=== PATIENT | male | born 1975 | race African-American/Black ===

== ENCOUNTER 2022-06-15 14:20 | Inpatient (IN) | payer OTHER ==
[2022-06-15 16:55] VITALS: BMI 21.2
[2022-06-15] MEDS ORDERED: BISMUTH SUBSALICYLATE 524 MG/30 ML PO PRN (17:16)
[2022-06-15] MEDS ORDERED: BENZOCAINE/MENTHOL (CHLORASEPTIC ) LOZENGE MM PRN (17:16)
[2022-06-15] MEDS ORDERED: DICYCLOMINE HCL 10 MG CAPSULE PO PRN (17:16)
[2022-06-15] MEDS ORDERED: NALOXONE HCL (KLOXXADO) 8 MG SPRAY NS PRN (17:16)
[2022-06-15] MEDS ORDERED: LOPERAMIDE HCL 2 MG CAPSULE PO PRN (17:16)
[2022-06-15] MEDS ORDERED: POLYETHYLENE GLYCOL (HEALTHYLAX) 3350 17 GM PACKET PO PRN (17:16)
[2022-06-15] MEDS ORDERED: IBUPROFEN 400 MG TABLET (FP) PO PRN (17:16)
[2022-06-15] MEDS ORDERED: MAGNESIUM HYDROX 2400MG/30ML ORAL SUSPENSION 30 ML CUP PO PRN (17:16)
[2022-06-15] MEDS ORDERED: MAG HYDROX/AL HYDROX/SIMETH 30 ML UNIT-DOSE CUP PO PRN (17:16)
[2022-06-15] MEDS ORDERED: ACETAMINOPHEN 325 MG TABLET (FP) PO PRN ×2 (17:16)
[2022-06-15] MEDS ORDERED: ONDANSETRON *ODT* 4 MG TABLET SL PRN (17:16)
[2022-06-15] MEDS ORDERED: NICOTINE POLACRILEX 4 MG GUM BUC PRN (17:16)
[2022-06-15] MEDS: cloNIDine HCL 0.1 MG TABLET PO PRN (18:21)
[2022-06-15] MEDS: MELATONIN 5 MG TABLETS PO SCH (23:11)
[2022-06-15] MEDS: THIAMINE HCL 100 MG TABLET (FP) PO SCH (23:11)
[2022-06-16] MEDS: cloNIDine HCL 0.1 MG TABLET PO PRN ×2 (06:33→23:19)
[2022-06-16] MEDS ORDERED: cloNIDine HCL 0.1 MG TABLET PO PRN (09:52)
[2022-06-16] MEDS ORDERED: methaDONE HCL 10 MG TABLET (FOR DETOX USE ONLY) PO ONE (10:15)
[2022-06-16] MEDS: PRENATAL VITAMINS W/ FOLIC ACID TABLET (FP) PO SCH (10:43)
[2022-06-16 11:50] LABS: HEMATOCRIT 38.4 % (35.4-49); HEMOGLOBIN 12.9 GM/dL (11.7-16.9); MCH 32.7 pg (25.7-33.7); MCHC 33.5 g/dl (32.0-35.9); MEAN CELL VOLUME 97.9 fl (80-96); MEAN PLT VOLUME 7.5 fl (7.5-11.1); PLATELET COUNT 389 10^3/uL (134-434); RBC 3.93 M/mm3 (4.00-5.60); RDW 15.3 % (11.9-15.9); WHITE BLOOD COUNT 5.1 K/mm3 (4.0-10.0)
[2022-06-16 11:56] LABS: ALBUMIN 2.8 g/dl (3.4-5.0); BLOOD UREA NITROGEN 11.5 mg/dL (7-18); CALCIUM 8.9 mg/dL (8.5-10.1)
[2022-06-16 11:59] LABS: CREATININE 0.7 mg/dL (0.55-1.3)
[2022-06-16 12:00] LABS: BILIRUBIN,TOTAL 0.7 mg/dL (0.2-1); TOT PROT 6.2 g/dl (6.4-8.2)
[2022-06-16] MEDS: MELATONIN 5 MG TABLETS PO SCH (23:19)
[2022-06-16] MEDS: THIAMINE HCL 100 MG TABLET (FP) PO SCH (23:19)
[2022-06-17] MEDS: CLINDAMYCIN HCL 150 MG CAPSULE (FP) PO SCH ×3 (05:11→17:26)
[2022-06-17] MEDS ORDERED: LACTULOSE 20 GM/30 ML UDC (FOR ORAL USE ONLY) PO PRN (10:08)
[2022-06-17] MEDS: PRENATAL VITAMINS W/ FOLIC ACID TABLET (FP) PO SCH (10:24)
[2022-06-17] MEDS: cloNIDine HCL 0.1 MG TABLET PO PRN (14:36)
[2022-06-18] MEDS: CLINDAMYCIN HCL 150 MG CAPSULE (FP) PO SCH ×2 (00:34→05:48)
[2022-06-18] MEDS: THIAMINE HCL 100 MG TABLET (FP) PO SCH (00:34)
[2022-06-18] MEDS: MELATONIN 5 MG TABLETS PO SCH (00:34)
[2022-06-18] MEDS: cloNIDine HCL 0.1 MG TABLET PO PRN (05:49)
[2022-06-18 09:27] VITALS: BP 147/73; PULSE 89; RESP 18; TEMP 98
[2022-06-18] MEDS ORDERED: methaDONE HCL 10 MG TABLET (FOR DETOX USE ONLY) PO ONE (10:00)
[2022-06-18] MEDS: PRENATAL VITAMINS W/ FOLIC ACID TABLET (FP) PO SCH (10:25)
[2022-06-20] MEDS ORDERED: methaDONE HCL 10 MG TABLET (FOR DETOX USE ONLY) PO ONE (10:00)
== END 2022-06-18 11:41 | disposition left against medical advice (07) | DRG 770 ==
LOC: YASAS 14:20 → Y6N 17:45 → UNDOADMIN 17:45
PROVIDERS: ADMIT Allergy & Immunology; ATTEND Surgery
PROC: HZ2ZZZZ Detoxification Services for Substance Abuse Treatment (ICD-10-PCS; principal; 2022-06-15)
DX: F11.23 Opioid dependence with withdrawal (principal); F14.20 Cocaine dependence, uncomplicated; F12.10 Cannabis abuse, uncomplicated; J34.0 Abscess, furuncle and carbuncle of nose; Z59.00 Homelessness unspecified; Z28.310 Unvaccinated for COVID-19; Z28.9 Immunization not carried out for unspecified reason
CPT/HCPCS: 36415; 80053; 82140; 85027; 86780; 86803; C9803-CS; U0003; U0005

== ENCOUNTER 2022-06-16 17:51 | Emergency (ER) | payer OTHER ==
[2022-06-16 18:33] VITALS: BP 148/91; PULSE 80; RESP 18; TEMP 98.5; BMI 20.6
[2022-06-16] MEDS ORDERED: CLINDAMYCIN HCL 150 MG CAPSULE (FP) PO ONE (18:33)
[2022-06-16] MEDS ORDERED: CLINDAMYCIN HCL 150 MG CAPSULE (FP) ONE (18:37)
[2022-06-17] MEDS ORDERED: CLINDAMYCIN HCL 150 MG CAPSULE (FP) PO SCH (06:00)
== END 2022-06-16 22:09 | disposition home or self-care (01) ==
LOC: FER 17:51
DX: J34.0 Abscess, furuncle and carbuncle of nose (principal)
CPT/HCPCS: 99283-25

== ENCOUNTER 2022-08-16 21:19 | Inpatient (IN) | payer OTHER ==
[2022-08-16 21:56] VITALS: BMI 20.2
[2022-08-16] MEDS ORDERED: IBUPROFEN 600 MG TABLET (FP) PO PRN (22:25)
[2022-08-16] MEDS ORDERED: LOPERAMIDE HCL 2 MG CAPSULE PO PRN (22:25)
[2022-08-16] MEDS ORDERED: IBUPROFEN 400 MG TABLET (FP) PO PRN (22:25)
[2022-08-16] MEDS ORDERED: guaiFENesin 200 MG/10 ML 10 ML UNIT-DOSE CUPS PO PRN (22:25)
[2022-08-16] MEDS ORDERED: MAGNESIUM HYDROX 2400MG/30ML ORAL SUSPENSION 30 ML CUP PO PRN (22:25)
[2022-08-16] MEDS ORDERED: ONDANSETRON *ODT* 4 MG TABLET SL PRN (22:25)
[2022-08-16] MEDS ORDERED: NALOXONE HCL (KLOXXADO) 8 MG SPRAY NS PRN (22:25)
[2022-08-16] MEDS ORDERED: NALOXONE HCL 0.4 MG/ML VIAL IM PRN (22:25)
[2022-08-16] MEDS ORDERED: BISMUTH SUBSALICYLATE 524 MG/30 ML PO PRN (22:25)
[2022-08-16] MEDS ORDERED: MAG HYDROX/AL HYDROX/SIMETH 30 ML UNIT-DOSE CUP PO PRN (22:25)
[2022-08-16] MEDS ORDERED: P-EPHED 60MG/TRIPROLIDI 2.5MG TABLET PO PRN (22:25)
[2022-08-16] MEDS ORDERED: DICYCLOMINE HCL 10 MG CAPSULE PO PRN (22:25)
[2022-08-16] MEDS ORDERED: BENZOCAINE/MENTHOL (CHLORASEPTIC ) LOZENGE MM PRN (22:25)
[2022-08-16] MEDS ORDERED: POLYETHYLENE GLYCOL (HEALTHYLAX) 3350 17 GM PACKET PO PRN (22:25)
[2022-08-16] MEDS ORDERED: NICOTINE POLACRILEX 2 MG GUM BUC PRN (22:25)
[2022-08-16] MEDS ORDERED: NICOTINE 10 MG CARTRIDGE (INHALER) IH PRN (22:25)
[2022-08-16] MEDS ORDERED: ACETAMINOPHEN 325 MG TABLET (FP) PO PRN ×2 (22:25)
[2022-08-17] MEDS: PRENATAL VITAMINS W/ FOLIC ACID TABLET (FP) PO SCH (10:28)
[2022-08-17] MEDS: METHOCARBAMOL 500 MG TABLET PO PRN (10:29)
[2022-08-17] MEDS ORDERED: methaDONE HCL 10 MG TABLET (FOR DETOX USE ONLY) PO ONE (11:08)
[2022-08-17 11:58] LABS: HEMATOCRIT 39.7 % (35.4-49); HEMOGLOBIN 13.3 GM/dL (11.7-16.9); MCH 33.2 pg (25.7-33.7); MCHC 33.5 g/dl (32.0-35.9); MEAN CELL VOLUME 99.1 fl (80-96); MEAN PLT VOLUME 7.5 fl (7.5-11.1); PLATELET COUNT 344 10^3/uL (134-434); RDW 14.1 % (11.9-15.9); WHITE BLOOD COUNT 4.3 K/mm3 (4.0-10.0)
[2022-08-17] MEDS: diazePAM 5 MG TABLET PO PRN (11:59)
[2022-08-17 12:05] LABS: ALBUMIN 2.8 g/dl (3.4-5.0); CALCIUM 8.5 mg/dL (8.5-10.1)
[2022-08-17 12:06] LABS: BLOOD UREA NITROGEN 16.7 mg/dL (7-18)
[2022-08-17 12:08] LABS: CREATININE 0.8 mg/dL (0.55-1.3)
[2022-08-17 12:10] LABS: BILIRUBIN,TOTAL 0.6 mg/dL (0.2-1); TOT PROT 5.9 g/dl (6.4-8.2)
[2022-08-17] MEDS: MELATONIN 5 MG TABLETS PO PRN (22:23)
[2022-08-17] MEDS: THIAMINE HCL 100 MG TABLET (FP) PO SCH (22:23)
[2022-08-17] MEDS: cloNIDine HCL 0.1 MG TABLET PO PRN (22:24)
[2022-08-18] MEDS: diazePAM 5 MG TABLET PO PRN (09:54)
[2022-08-18] MEDS: PRENATAL VITAMINS W/ FOLIC ACID TABLET (FP) PO SCH (09:54)
[2022-08-18] MEDS: cloNIDine HCL 0.1 MG TABLET PO PRN (18:16)
[2022-08-18] MEDS: THIAMINE HCL 100 MG TABLET (FP) PO SCH (23:01)
[2022-08-19] MEDS ORDERED: methaDONE HCL 10 MG TABLET (FOR DETOX USE ONLY) PO ONE (10:00)
[2022-08-19] MEDS: PRENATAL VITAMINS W/ FOLIC ACID TABLET (FP) PO SCH (10:34)
[2022-08-19] MEDS: METHOCARBAMOL 500 MG TABLET PO PRN ×2 (10:39→22:37)
[2022-08-19] MEDS: hydrOXYzine PAMOATE 25 MG CAPSULE (FP) PO PRN (10:41)
[2022-08-19] MEDS: cloNIDine HCL 0.1 MG TABLET PO PRN (22:37)
[2022-08-19] MEDS: MELATONIN 5 MG TABLETS PO PRN (22:37)
[2022-08-19] MEDS: THIAMINE HCL 100 MG TABLET (FP) PO SCH (22:37)
[2022-08-19] MEDS: diazePAM 5 MG TABLET PO PRN (22:38)
[2022-08-20] MEDS: PRENATAL VITAMINS W/ FOLIC ACID TABLET (FP) PO SCH (10:41)
[2022-08-20] MEDS ORDERED: diazePAM 5 MG TABLET PO PRN (13:42)
[2022-08-20 13:59] VITALS: TEMP 97.3
[2022-08-20 15:16] VITALS: BP 113/56; PULSE 79; RESP 18
[2022-08-20] MEDS: hydrOXYzine PAMOATE 25 MG CAPSULE (FP) PO PRN (15:17)
[2022-08-20] MEDS: METHOCARBAMOL 500 MG TABLET PO PRN (15:17)
[2022-08-20] MEDS: THIAMINE HCL 100 MG TABLET (FP) PO SCH (23:18)
[2022-08-21] MEDS ORDERED: methaDONE HCL 10 MG TABLET (FOR DETOX USE ONLY) PO ONE (10:00)
== END 2022-08-20 19:04 | disposition left against medical advice (07) | DRG 770 ==
LOC: YASAS 21:19 → Y3N 23:20
PROVIDERS: ADMIT Allergy & Immunology; ATTEND Surgery
PROC: HZ2ZZZZ Detoxification Services for Substance Abuse Treatment (ICD-10-PCS; principal; 2022-08-16)
DX: F11.23 Opioid dependence with withdrawal (principal); F10.230 Alcohol dependence with withdrawal, uncomplicated; F14.20 Cocaine dependence, uncomplicated; F17.210 Nicotine dependence, cigarettes, uncomplicated; F51.01 Primary insomnia; R26.89 Other abnormalities of gait and mobility; Z56.0 Unemployment, unspecified; Z59.00 Homelessness unspecified; Z28.310 Unvaccinated for COVID-19
CPT/HCPCS: 36415; 80053; 85027; 86780; C9803-CS; U0003; U0005

== ENCOUNTER 2022-10-02 15:48 | Inpatient (IN) | payer OTHER ==
[2022-10-02 17:54] VITALS: BMI 19.8
[2022-10-02] MEDS ORDERED: BENZOCAINE/MENTHOL (CHLORASEPTIC ) LOZENGE MM PRN (20:45)
[2022-10-02] MEDS ORDERED: NALOXONE HCL (KLOXXADO) 8 MG SPRAY NS PRN (20:45)
[2022-10-02] MEDS ORDERED: DICYCLOMINE HCL 10 MG CAPSULE PO PRN (20:45)
[2022-10-02] MEDS ORDERED: guaiFENesin 600 MG TABLET.ER (FP) PO PRN (20:45)
[2022-10-02] MEDS ORDERED: NICOTINE POLACRILEX 2 MG GUM BUC PRN (20:45)
[2022-10-02] MEDS ORDERED: P-EPHED 60MG/TRIPROLIDI 2.5MG TABLET PO PRN (20:45)
[2022-10-02] MEDS ORDERED: IBUPROFEN 400 MG TABLET (FP) PO PRN (20:45)
[2022-10-02] MEDS ORDERED: NICOTINE 10 MG CARTRIDGE (INHALER) IH PRN (20:45)
[2022-10-02] MEDS ORDERED: MAGNESIUM HYDROX 2400MG/30ML ORAL SUSPENSION 30 ML CUP PO PRN (20:45)
[2022-10-02] MEDS ORDERED: LOPERAMIDE HCL 2 MG CAPSULE PO PRN (20:45)
[2022-10-02] MEDS ORDERED: ACETAMINOPHEN 325 MG TABLET (FP) PO PRN ×2 (20:45)
[2022-10-02] MEDS ORDERED: MAG HYDROX/AL HYDROX/SIMETH 30 ML UNIT-DOSE CUP PO PRN (20:45)
[2022-10-02] MEDS ORDERED: ONDANSETRON *ODT* 4 MG TABLET SL PRN (20:45)
[2022-10-02] MEDS ORDERED: NALOXONE HCL 0.4 MG/ML VIAL IM PRN (20:45)
[2022-10-02] MEDS ORDERED: BISMUTH SUBSALICYLATE 524 MG/30 ML PO PRN (20:45)
[2022-10-02] MEDS ORDERED: BENZONATATE 200 MG CAPSULE PO PRN (20:45)
[2022-10-02] MEDS ORDERED: POLYETHYLENE GLYCOL (HEALTHYLAX) 3350 17 GM PACKET PO PRN (20:45)
[2022-10-02] MEDS: MELATONIN 5 MG TABLETS PO PRN (21:54)
[2022-10-02] MEDS: THIAMINE HCL 100 MG TABLET (FP) PO SCH (21:54)
[2022-10-02] MEDS: IBUPROFEN 600 MG TABLET (FP) PO PRN (21:56)
[2022-10-02] MEDS: hydrOXYzine PAMOATE 25 MG CAPSULE (FP) PO PRN (21:56)
[2022-10-03] MEDS: METHOCARBAMOL 500 MG TABLET PO PRN ×3 (03:37→22:14)
[2022-10-03] MEDS: hydrOXYzine PAMOATE 25 MG CAPSULE (FP) PO PRN ×2 (03:38→17:31)
[2022-10-03] MEDS: IBUPROFEN 600 MG TABLET (FP) PO PRN ×2 (03:38→17:30)
[2022-10-03] MEDS: PRENATAL VITAMINS W/ FOLIC ACID TABLET (FP) PO SCH (10:56)
[2022-10-03 12:20] LABS: HEMATOCRIT 34.4 % (35.4-49); HEMOGLOBIN 11.8 GM/dL (11.7-16.9); MCH 33.8 pg (25.7-33.7); MCHC 34.3 g/dl (32.0-35.9); MEAN CELL VOLUME 98.4 fl (80-96); MEAN PLT VOLUME 7.5 fl (7.5-11.1); PLATELET COUNT 360 10^3/uL (134-434); RBC 3.49 M/mm3 (4.00-5.60); RDW 13.7 % (11.9-15.9); WHITE BLOOD COUNT 6.2 K/mm3 (4.0-10.0)
[2022-10-03 12:32] LABS: ALBUMIN 2.4 g/dl (3.4-5.0); BLOOD UREA NITROGEN 24.6 mg/dL (7-18); CALCIUM 8.1 mg/dL (8.5-10.1)
[2022-10-03 12:35] LABS: CREATININE 0.9 mg/dL (0.55-1.3)
[2022-10-03 12:37] LABS: BILIRUBIN,TOTAL 0.8 mg/dL (0.2-1); TOT PROT 5.6 g/dl (6.4-8.2)
[2022-10-03] MEDS ORDERED: methaDONE HCL 10 MG TABLET (FOR DETOX USE ONLY) PO ONE (13:57)
[2022-10-03] MEDS: cloNIDine HCL 0.1 MG TABLET PO PRN (17:31)
[2022-10-03] MEDS: MELATONIN 5 MG TABLETS PO PRN (22:12)
[2022-10-03] MEDS: THIAMINE HCL 100 MG TABLET (FP) PO SCH (22:12)
[2022-10-04] MEDS: IBUPROFEN 600 MG TABLET (FP) PO PRN ×2 (05:20→17:32)
[2022-10-04] MEDS: PRENATAL VITAMINS W/ FOLIC ACID TABLET (FP) PO SCH (10:53)
[2022-10-04] MEDS: hydrOXYzine PAMOATE 25 MG CAPSULE (FP) PO PRN (10:53)
[2022-10-04] MEDS: METHOCARBAMOL 500 MG TABLET PO PRN ×3 (10:53→22:26)
[2022-10-04] MEDS: cloNIDine HCL 0.1 MG TABLET PO PRN (10:53)
[2022-10-04] MEDS: diazePAM 5 MG TABLET PO SCH ×3 (11:57→22:24)
[2022-10-04 20:54] VITALS: RESP 18
[2022-10-04] MEDS: THIAMINE HCL 100 MG TABLET (FP) PO SCH (22:24)
[2022-10-05] MEDS: cloNIDine HCL 0.1 MG TABLET PO PRN (02:41)
[2022-10-05] MEDS: IBUPROFEN 600 MG TABLET (FP) PO PRN (04:30)
[2022-10-05] MEDS: diazePAM 5 MG TABLET PO SCH ×2 (05:00→10:10)
[2022-10-05] MEDS ORDERED: methaDONE HCL 10 MG TABLET (FOR DETOX USE ONLY) PO ONE (10:00)
[2022-10-05] MEDS: METHOCARBAMOL 500 MG TABLET PO PRN (10:10)
[2022-10-05] MEDS: hydrOXYzine PAMOATE 25 MG CAPSULE (FP) PO PRN (10:10)
[2022-10-05] MEDS: PRENATAL VITAMINS W/ FOLIC ACID TABLET (FP) PO SCH (10:10)
[2022-10-05 12:58] VITALS: BP 154/79; PULSE 80; TEMP 97.5
[2022-10-06] MEDS ORDERED: diazePAM 5 MG TABLET PO SCH (06:00)
[2022-10-07] MEDS ORDERED: diazePAM 5 MG TABLET PO SCH (06:00)
[2022-10-07] MEDS ORDERED: methaDONE HCL 10 MG TABLET (FOR DETOX USE ONLY) PO ONE (10:00)
[2022-10-08] MEDS ORDERED: diazePAM 5 MG TABLET PO ONE (06:00)
== END 2022-10-05 14:12 | disposition left against medical advice (07) | DRG 770 ==
LOC: YASAS 15:48 → Y6N 21:11
PROVIDERS: ADMIT Allergy & Immunology; ATTEND Surgery
PROC: HZ2ZZZZ Detoxification Services for Substance Abuse Treatment (ICD-10-PCS; principal; 2022-10-02)
DX: F11.23 Opioid dependence with withdrawal (principal); F10.230 Alcohol dependence with withdrawal, uncomplicated; F14.20 Cocaine dependence, uncomplicated; F12.20 Cannabis dependence, uncomplicated; F17.210 Nicotine dependence, cigarettes, uncomplicated; R79.89 Other specified abnormal findings of blood chemistry; Z28.310 Unvaccinated for COVID-19; Z28.9 Immunization not carried out for unspecified reason; Z59.02 Unsheltered homelessness
CPT/HCPCS: 36415; 80053; 85027; 86780; C9803-CS; U0003; U0005

== ENCOUNTER 2022-10-12 23:43 | Inpatient (IN) | payer OTHER ==
[2022-10-13 00:43] VITALS: BMI 20.9
[2022-10-13] MEDS ORDERED: ONDANSETRON *ODT* 4 MG TABLET SL PRN (01:52)
[2022-10-13] MEDS ORDERED: DICYCLOMINE HCL 10 MG CAPSULE PO PRN (01:52)
[2022-10-13] MEDS ORDERED: LOPERAMIDE HCL 2 MG CAPSULE PO PRN (01:52)
[2022-10-13] MEDS ORDERED: NICOTINE 10 MG CARTRIDGE (INHALER) IH PRN (01:52)
[2022-10-13] MEDS ORDERED: BENZOCAINE/MENTHOL (CHLORASEPTIC ) LOZENGE MM PRN (01:52)
[2022-10-13] MEDS ORDERED: BISMUTH SUBSALICYLATE 524 MG/30 ML PO PRN (01:52)
[2022-10-13] MEDS ORDERED: IBUPROFEN 400 MG TABLET (FP) PO PRN (01:52)
[2022-10-13] MEDS ORDERED: MAG HYDROX/AL HYDROX/SIMETH 30 ML UNIT-DOSE CUP PO PRN (01:52)
[2022-10-13] MEDS ORDERED: NALOXONE HCL 0.4 MG/ML VIAL IM PRN (01:52)
[2022-10-13] MEDS ORDERED: BENZONATATE 200 MG CAPSULE PO PRN (01:52)
[2022-10-13] MEDS ORDERED: guaiFENesin 600 MG TABLET.ER (FP) PO PRN (01:52)
[2022-10-13] MEDS ORDERED: NALOXONE HCL (KLOXXADO) 8 MG SPRAY NS PRN (01:52)
[2022-10-13] MEDS ORDERED: POLYETHYLENE GLYCOL (HEALTHYLAX) 3350 17 GM PACKET PO PRN (01:52)
[2022-10-13] MEDS ORDERED: ACETAMINOPHEN 325 MG TABLET (FP) PO PRN (01:52)
[2022-10-13] MEDS ORDERED: MAGNESIUM HYDROX 2400MG/30ML ORAL SUSPENSION 30 ML CUP PO PRN (01:52)
[2022-10-13] MEDS ORDERED: diazePAM 5 MG TABLET PO PRN (10:16)
[2022-10-13] MEDS ORDERED: methaDONE HCL 10 MG TABLET (FOR DETOX USE ONLY) PO ONE (10:16)
[2022-10-13] MEDS: PRENATAL VITAMINS W/ FOLIC ACID TABLET (FP) PO SCH (11:16)
[2022-10-13] MEDS: NICOTINE 21 MG/24 HOURS TOPICAL PATCH TD SCH (11:17)
[2022-10-13] MEDS: diazePAM 5 MG TABLET PO SCH ×3 (11:17→22:25)
[2022-10-13] MEDS: IBUPROFEN 600 MG TABLET (FP) PO PRN (17:40)
[2022-10-13] MEDS: THIAMINE HCL 100 MG TABLET (FP) PO SCH (22:25)
[2022-10-13] MEDS: MELATONIN 5 MG TABLETS PO SCH (22:25)
[2022-10-13] MEDS: cloNIDine HCL 0.1 MG TABLET PO PRN (22:27)
[2022-10-13] MEDS: METHOCARBAMOL 500 MG TABLET PO PRN (22:27)
[2022-10-14] MEDS: diazePAM 5 MG TABLET PO SCH ×4 (05:34→22:28)
[2022-10-14] MEDS: IBUPROFEN 600 MG TABLET (FP) PO PRN ×2 (05:36→17:20)
[2022-10-14] MEDS: cloNIDine HCL 0.1 MG TABLET PO PRN ×2 (10:42→14:35)
[2022-10-14] MEDS: PRENATAL VITAMINS W/ FOLIC ACID TABLET (FP) PO SCH (10:42)
[2022-10-14] MEDS: NICOTINE 21 MG/24 HOURS TOPICAL PATCH TD SCH (10:44)
[2022-10-14 12:21] LABS: ALBUMIN 2.4 g/dl (3.4-5.0); BLOOD UREA NITROGEN 19.6 mg/dL (7-18); CALCIUM 8.3 mg/dL (8.5-10.1)
[2022-10-14 12:24] LABS: CREATININE 0.7 mg/dL (0.55-1.3)
[2022-10-14 12:25] LABS: BILIRUBIN,TOTAL 0.3 mg/dL (0.2-1); TOT PROT 5.6 g/dl (6.4-8.2)
[2022-10-14 12:45] LABS: HEMATOCRIT 33.8 % (35.4-49); HEMOGLOBIN 11.8 GM/dL (11.7-16.9); MCH 34.3 pg (25.7-33.7); MCHC 34.8 g/dl (32.0-35.9); MEAN CELL VOLUME 98.5 fl (80-96); MEAN PLT VOLUME 7.6 fl (7.5-11.1); PLATELET COUNT 490 10^3/uL (134-434); RBC 3.43 M/mm3 (4.00-5.60); RDW 13.6 % (11.9-15.9)
[2022-10-14] MEDS: METHOCARBAMOL 500 MG TABLET PO PRN (17:20)
[2022-10-14] MEDS: THIAMINE HCL 100 MG TABLET (FP) PO SCH (22:27)
[2022-10-14] MEDS: MELATONIN 5 MG TABLETS PO SCH (22:27)
[2022-10-15] MEDS: IBUPROFEN 600 MG TABLET (FP) PO PRN ×2 (02:14→22:35)
[2022-10-15] MEDS: diazePAM 5 MG TABLET PO SCH ×3 (05:21→22:34)
[2022-10-15] MEDS: METHOCARBAMOL 500 MG TABLET PO PRN (05:22)
[2022-10-15] MEDS ORDERED: methaDONE HCL 10 MG TABLET (FOR DETOX USE ONLY) PO ONE (10:00)
[2022-10-15] MEDS: PRENATAL VITAMINS W/ FOLIC ACID TABLET (FP) PO SCH (10:03)
[2022-10-15] MEDS: cloNIDine HCL 0.1 MG TABLET PO PRN (10:03)
[2022-10-15] MEDS: NICOTINE 21 MG/24 HOURS TOPICAL PATCH TD SCH (10:05)
[2022-10-15] MEDS: MELATONIN 5 MG TABLETS PO SCH (22:33)
[2022-10-15] MEDS: THIAMINE HCL 100 MG TABLET (FP) PO SCH (22:33)
[2022-10-16] MEDS: diazePAM 5 MG TABLET PO SCH ×2 (06:04→17:08)
[2022-10-16] MEDS: PRENATAL VITAMINS W/ FOLIC ACID TABLET (FP) PO SCH (10:36)
[2022-10-16] MEDS: NICOTINE 21 MG/24 HOURS TOPICAL PATCH TD SCH (10:38)
[2022-10-16] MEDS: IBUPROFEN 600 MG TABLET (FP) PO PRN (16:33)
[2022-10-16] MEDS: METHOCARBAMOL 500 MG TABLET PO PRN (16:33)
[2022-10-16] MEDS: THIAMINE HCL 100 MG TABLET (FP) PO SCH (23:00)
[2022-10-16] MEDS: MELATONIN 5 MG TABLETS PO SCH (23:00)
[2022-10-17] MEDS: METHOCARBAMOL 500 MG TABLET PO PRN ×2 (05:48→17:36)
[2022-10-17] MEDS: IBUPROFEN 600 MG TABLET (FP) PO PRN ×2 (05:48→17:36)
[2022-10-17] MEDS ORDERED: diazePAM 5 MG TABLET PO ONE (06:00)
[2022-10-17] MEDS ORDERED: methaDONE HCL 10 MG TABLET (FOR DETOX USE ONLY) PO ONE (10:00)
[2022-10-17] MEDS: PRENATAL VITAMINS W/ FOLIC ACID TABLET (FP) PO SCH (10:21)
[2022-10-17] MEDS: NICOTINE 21 MG/24 HOURS TOPICAL PATCH TD SCH (10:23)
[2022-10-17] MEDS ORDERED: LISINOPRIL 10 MG TABLET PO ONE (17:05)
[2022-10-17] MEDS: LISINOPRIL 10 MG TABLET PO SCH (17:35)
[2022-10-17 21:25] VITALS: RESP 18
[2022-10-17] MEDS: MELATONIN 5 MG TABLETS PO SCH (22:19)
[2022-10-17] MEDS: THIAMINE HCL 100 MG TABLET (FP) PO SCH (22:19)
[2022-10-18] MEDS: IBUPROFEN 600 MG TABLET (FP) PO PRN ×2 (07:11→17:30)
[2022-10-18] MEDS: METHOCARBAMOL 500 MG TABLET PO PRN ×2 (07:11→17:29)
[2022-10-18] MEDS: LISINOPRIL 10 MG TABLET PO SCH (09:21)
[2022-10-18] MEDS: NICOTINE 21 MG/24 HOURS TOPICAL PATCH TD SCH (09:21)
[2022-10-18] MEDS: PRENATAL VITAMINS W/ FOLIC ACID TABLET (FP) PO SCH (09:21)
[2022-10-18 17:55] VITALS: BP 162/92; PULSE 88; TEMP 98
== END 2022-10-18 18:50 | disposition other institution (70) | DRG 773 ==
LOC: YASAS 23:43 → UNDOADMIN 10-13 01:53 → Y6N 10-13 01:53
PROVIDERS: ADMIT Allergy & Immunology; ATTEND Surgery
PROC: HZ2ZZZZ Detoxification Services for Substance Abuse Treatment (ICD-10-PCS; principal; 2022-10-13)
DX: F11.23 Opioid dependence with withdrawal (principal); F10.230 Alcohol dependence with withdrawal, uncomplicated; F14.20 Cocaine dependence, uncomplicated; F17.213 Nicotine dependence, cigarettes, with withdrawal; F51.01 Primary insomnia; I10 Essential (primary) hypertension; Z28.310 Unvaccinated for COVID-19; Z28.9 Immunization not carried out for unspecified reason
CPT/HCPCS: 36415; 80053; 85027; 86780; C9803-CS; U0003; U0005

== ENCOUNTER 2022-10-18 18:52 | Inpatient (IN) | payer OTHER ==
[2022-10-18] MEDS ORDERED: LISINOPRIL 10 MG TABLET PO SCH (19:15)
[2022-10-18] MEDS ORDERED: COLLOIDAL OATMEAL 1 BAR EACH TP PRN (19:25)
[2022-10-18] MEDS ORDERED: MAG HYDROX/AL HYDROX/SIMETH 30 ML UNIT-DOSE CUP PO PRN (19:25)
[2022-10-18] MEDS ORDERED: guaiFENesin 600 MG TABLET.ER (FP) PO PRN (19:25)
[2022-10-18] MEDS ORDERED: BENZOCAINE/MENTHOL (CHLORASEPTIC ) LOZENGE MM PRN (19:25)
[2022-10-18] MEDS ORDERED: LOPERAMIDE HCL 2 MG CAPSULE PO PRN (19:25)
[2022-10-18] MEDS ORDERED: ACETAMINOPHEN 325 MG TABLET (FP) PO PRN (19:25)
[2022-10-18] MEDS ORDERED: AMMONIUM LACTATE 12% LOTION 225 GM BOTTLE TP PRN (19:25)
[2022-10-18] MEDS ORDERED: hydrOXYzine PAMOATE 25 MG CAPSULE (FP) PO PRN (19:25)
[2022-10-18] MEDS ORDERED: NALOXONE HCL 0.4 MG/ML VIAL IVPUSH PRN (19:25)
[2022-10-18] MEDS ORDERED: NALOXONE HCL (KLOXXADO) 8 MG SPRAY NS PRN (19:25)
[2022-10-18] MEDS ORDERED: BENZONATATE 200 MG CAPSULE PO PRN (19:25)
[2022-10-18] MEDS ORDERED: POLYETHYLENE GLYCOL (HEALTHYLAX) 3350 17 GM PACKET PO PRN (19:25)
[2022-10-18] MEDS ORDERED: MAGNESIUM HYDROX 2400MG/30ML ORAL SUSPENSION 30 ML CUP PO PRN (19:25)
[2022-10-18] MEDS ORDERED: NICOTINE 10 MG CARTRIDGE (INHALER) IH PRN (19:29)
[2022-10-18] MEDS: NICOTINE 21 MG/24 HOURS TOPICAL PATCH TD SCH (20:30)
[2022-10-18] MEDS: THIAMINE HCL 100 MG TABLET (FP) PO SCH (21:19)
[2022-10-18] MEDS: MELATONIN 5 MG TABLETS PO SCH (21:19)
[2022-10-19] MEDS ORDERED: TUBERCULIN PPD 5 TU/0.1ML VIAL ID ONE (03:58)
[2022-10-19] MEDS: PRENATAL VITAMINS W/ FOLIC ACID TABLET (FP) PO SCH (10:42)
[2022-10-19] MEDS: NICOTINE 21 MG/24 HOURS TOPICAL PATCH TD SCH (10:42)
[2022-10-19] MEDS: LISINOPRIL 10 MG TABLET PO SCH (10:43)
[2022-10-19] MEDS: THIAMINE HCL 100 MG TABLET (FP) PO SCH (21:15)
[2022-10-19] MEDS: MELATONIN 5 MG TABLETS PO SCH (21:15)
[2022-10-20] MEDS: IBUPROFEN 400 MG TABLET (FP) PO PRN (01:41)
[2022-10-20] MEDS: PRENATAL VITAMINS W/ FOLIC ACID TABLET (FP) PO SCH (10:28)
[2022-10-20] MEDS: NICOTINE 21 MG/24 HOURS TOPICAL PATCH TD SCH (10:28)
[2022-10-20] MEDS: IBUPROFEN 600 MG TABLET (FP) PO PRN (10:28)
[2022-10-20] MEDS: LISINOPRIL 10 MG TABLET PO SCH (10:28)
[2022-10-20] MEDS: THIAMINE HCL 100 MG TABLET (FP) PO SCH (21:16)
[2022-10-20] MEDS: BACLOFEN 10 MG TABLET (FP) PO PRN (21:17)
[2022-10-20] MEDS: METHOCARBAMOL 500 MG TABLET PO PRN (21:17)
[2022-10-20] MEDS ORDERED: MELATONIN 5 MG TABLETS PO SCH (22:00)
[2022-10-21] MEDS: IBUPROFEN 600 MG TABLET (FP) PO PRN ×3 (06:48→21:14)
[2022-10-21] MEDS: METHOCARBAMOL 500 MG TABLET PO PRN ×3 (06:48→21:13)
[2022-10-21] MEDS: LISINOPRIL 10 MG TABLET PO SCH (10:30)
[2022-10-21] MEDS: PRENATAL VITAMINS W/ FOLIC ACID TABLET (FP) PO SCH (10:30)
[2022-10-21] MEDS: NICOTINE 21 MG/24 HOURS TOPICAL PATCH TD SCH (10:31)
[2022-10-21] MEDS ORDERED: ACETAMINOPHEN 325 MG TABLET (FP) PO PRN (14:49)
[2022-10-21] MEDS: THIAMINE HCL 100 MG TABLET (FP) PO SCH (21:13)
[2022-10-21] MEDS: BACLOFEN 10 MG TABLET (FP) PO PRN (21:13)
[2022-10-21] MEDS: traZODone HCL 50 MG TABLET (FP) PO SCH (21:14)
[2022-10-22] MEDS: LISINOPRIL 10 MG TABLET PO SCH (09:52)
[2022-10-22] MEDS: PRENATAL VITAMINS W/ FOLIC ACID TABLET (FP) PO SCH (09:52)
[2022-10-22] MEDS: NICOTINE 21 MG/24 HOURS TOPICAL PATCH TD SCH (09:52)
[2022-10-22] MEDS: IBUPROFEN 400 MG TABLET (FP) PO PRN (09:53)
[2022-10-22] MEDS: LIDOCAINE 5% TOPICAL PATCH TP SCH (11:57)
[2022-10-22] MEDS: THIAMINE HCL 100 MG TABLET (FP) PO SCH (21:14)
[2022-10-22] MEDS: traZODone HCL 50 MG TABLET (FP) PO SCH (21:14)
[2022-10-22] MEDS: LIDOCAINE PATCH REMOVAL MC SCH (21:14)
[2022-10-22] MEDS: METHOCARBAMOL 500 MG TABLET PO PRN (21:16)
[2022-10-22] MEDS: IBUPROFEN 600 MG TABLET (FP) PO PRN (21:16)
[2022-10-23] MEDS: PRENATAL VITAMINS W/ FOLIC ACID TABLET (FP) PO SCH (09:54)
[2022-10-23] MEDS: LIDOCAINE 5% TOPICAL PATCH TP SCH (09:54)
[2022-10-23] MEDS: LISINOPRIL 10 MG TABLET PO SCH (09:54)
[2022-10-23] MEDS: NICOTINE 21 MG/24 HOURS TOPICAL PATCH TD SCH (09:55)
[2022-10-23] MEDS: THIAMINE HCL 100 MG TABLET (FP) PO SCH (21:09)
[2022-10-23] MEDS: BACLOFEN 10 MG TABLET (FP) PO PRN (21:09)
[2022-10-23] MEDS: LIDOCAINE PATCH REMOVAL MC SCH (21:10)
[2022-10-23] MEDS: traZODone HCL 50 MG TABLET (FP) PO SCH (21:10)
[2022-10-23] MEDS: METHOCARBAMOL 500 MG TABLET PO PRN (21:10)
[2022-10-24] MEDS: NICOTINE 21 MG/24 HOURS TOPICAL PATCH TD SCH (09:51)
[2022-10-24] MEDS: PRENATAL VITAMINS W/ FOLIC ACID TABLET (FP) PO SCH (09:51)
[2022-10-24] MEDS: LISINOPRIL 10 MG TABLET PO SCH (09:51)
[2022-10-24] MEDS: LIDOCAINE 5% TOPICAL PATCH TP SCH (09:52)
[2022-10-24] MEDS: IBUPROFEN 600 MG TABLET (FP) PO PRN ×2 (09:53→22:01)
[2022-10-24] MEDS: METHOCARBAMOL 500 MG TABLET PO PRN (09:53)
[2022-10-24] MEDS: BACLOFEN 10 MG TABLET (FP) PO PRN (22:00)
[2022-10-24] MEDS: traZODone HCL 50 MG TABLET (FP) PO SCH (22:00)
[2022-10-24] MEDS: THIAMINE HCL 100 MG TABLET (FP) PO SCH (22:00)
[2022-10-24] MEDS: LIDOCAINE PATCH REMOVAL MC SCH (22:02)
[2022-10-25 07:29] VITALS: TEMP 96.9
[2022-10-25 09:16] VITALS: RESP 18
[2022-10-25] MEDS: LIDOCAINE 5% TOPICAL PATCH TP SCH (10:09)
[2022-10-25] MEDS: PRENATAL VITAMINS W/ FOLIC ACID TABLET (FP) PO SCH (10:09)
[2022-10-25] MEDS: NICOTINE 21 MG/24 HOURS TOPICAL PATCH TD SCH (10:09)
[2022-10-25] MEDS: LISINOPRIL 10 MG TABLET PO SCH (10:09)
[2022-10-25] MEDS: traZODone HCL 50 MG TABLET (FP) PO SCH (22:24)
[2022-10-25] MEDS: THIAMINE HCL 100 MG TABLET (FP) PO SCH (22:24)
[2022-10-25] MEDS: LIDOCAINE PATCH REMOVAL MC SCH (22:35)
[2022-10-26] MEDS: LIDOCAINE 5% TOPICAL PATCH TP SCH (09:22)
[2022-10-26] MEDS: LISINOPRIL 10 MG TABLET PO SCH (09:23)
[2022-10-26] MEDS: PRENATAL VITAMINS W/ FOLIC ACID TABLET (FP) PO SCH (09:23)
[2022-10-26] MEDS: NICOTINE 21 MG/24 HOURS TOPICAL PATCH TD SCH (09:24)
[2022-10-26 09:28] VITALS: BP 154/77; PULSE 100
== END 2022-10-26 09:45 | disposition home or self-care (01) | DRG 772 ==
LOC: YASAS 18:52 → Y3W 18:54
PROVIDERS: ADMIT Allergy & Immunology; ATTEND Psychiatry & Neurology Pain Medicine
PROC: HZ42ZZZ Group Counseling for Substance Abuse Treatment, Cognitive-Behavioral (ICD-10-PCS; principal; 2022-10-18)
DX: F11.20 Opioid dependence, uncomplicated (principal); F14.20 Cocaine dependence, uncomplicated; F17.210 Nicotine dependence, cigarettes, uncomplicated; F19.282 Other psychoactive substance dependence with psychoactive substance-induced sleep disorder; F51.01 Primary insomnia; I10 Essential (primary) hypertension; S32.301D Unspecified fracture of right ilium, subsequent encounter for fracture with routine healing; W19.XXXD Unspecified fall, subsequent encounter; Z99.89 Dependence on other enabling machines and devices
CPT/HCPCS: J0475